=== PATIENT | male | born 1935 | race Caucasian/White ===

== ENCOUNTER 2018-06-10 04:58 | Inpatient (IN) ==
[2018-06-10] MEDS ORDERED: ONDANSETRON 4 MG/2 ML VIAL IV STA (05:10)
[2018-06-10] MEDS ORDERED: MORPHINE 4 MG/1 ML VIAL IV STA (05:10)
[2018-06-10 05:39] LABS: Basophils % 0.3 % (0.0-0.8); Eosinophils # 0.4 10*3/uL (0.0-0.87); Eosinophils % 3.7 % (0.00-10.9); Hematocrit 21.8 VOL% (42.0-52.0); Immature Granulocytes % 2.5 %; Immature Granulocytes Absolute 0.29 #; Lymphocytes # 2.4 10*3/uL (1.4-4.0); Lymphocytes % 20.3 % (21.2-54.2); Mean Corpuscular Hemoglobin 18 PG (27-34); Mean Corpuscular Volume 65.5 FL (87-102); Mean Platelet Volume 8.8 FL (9.6-12.0); Monocytes # 1.1 10*3/uL (0.11-0.8); Monocytes % 8.9 % (1.7-12.7); Neutrophils # 7.6 10*3/uL (1.4-7.4); Neutrophils % 64.3 % (38.7-73.9); Platelet Count 677 T/CUMM (130-400); Red Blood Count 3.33 MC/CUMM (3.8-5.5); Red Cell Distribution Width 17.5 % (9.3-17.3); White Blood Count 11.8 T/CUMM (4-12)
[2018-06-10 06:05] LABS: Hemoglobin 6.1 GM/DL (14.0-18.0)
[2018-06-10 06:08] LABS: Hypochromasia 1+; Ovalocytes Few; Platelet Estimate Increased
[2018-06-10 06:09] LABS: Microcytosis 1+
[2018-06-10 06:29] LABS: Bilirubin,Total 0.4 MG/DL (0.2-1.0); Calcium 8.9 MG/DL (8.5-10.1)
[2018-06-10 06:30] LABS: Albumin 2.4 G/DL (3.4-5.0); Osmolality,Calculated 279.4 MOS/KG (273-304); Potassium 4.1 MMOL/L (3.5-5.1); Total Protein 6.7 G/DL (6.4-8.3)
[2018-06-10 07:07] LABS: INR 1.1; PT Patient Result 11.2 SECS; Partial Thromboplastin Time 26.2 SECS (0-40)
[2018-06-10 07:13] LABS: Apearance,Urine CLEAR (Clear); Bilirubin,Urine Negative (Negative); Blood, Urine Negative (Negative); Glucose,Urine (UA) Negative (Negative); Ketones,Urine Negative (Negative); Nitrite,Urine Negative (Negative); Protein,Urine Negative; Urine Color Straw (Yellow); Urine Specific Gravity 1.006 (1.001-1.035); Urine Urobilinogen < 2.0 EU/DL (0.2-1.0); WBC,Urine <1 /HPF (0-6)
[2018-06-10 07:23] LABS: % Iron Saturation 3.5 % (18-50)
[2018-06-10 07:37] LABS: Folate 11.6 NG/ML (5.4-24.0)
[2018-06-10] MEDS ORDERED: ACETAMINOPHEN 325 MG TABLET PO PRN (08:50)
[2018-06-10] MEDS ORDERED: SODIUM CHLORIDE 0.9% 1,000 ML IV PRN (08:55)
[2018-06-10] MEDS: PANTOPRAZOLE 40 MG TABLET PO SCH (12:38)
[2018-06-10] MEDS: ONDANSETRON 4 MG/2 ML VIAL IV PRN ×2 (12:39→19:59)
[2018-06-10] MEDS ORDERED: MORPHINE 4 MG/1 ML VIAL IV PRN (19:33)
[2018-06-10 22:02] LABS: Hematocrit 24.4 VOL% (42.0-52.0); Hemoglobin 7.4 GM/DL (14.0-18.0)
[2018-06-11 06:17] LABS: Basophils % 0.3 % (0.0-0.8); Eosinophils # 0.5 10*3/uL (0.0-0.87); Eosinophils % 5.1 % (0.00-10.9); Hemoglobin 7.6 GM/DL (14.0-18.0); Immature Granulocytes % 2.1 %; Lymphocytes # 1.7 10*3/uL (1.4-4.0); Lymphocytes % 18.4 % (21.2-54.2); Mean Corpuscular HGB Conc 30.4 GM/DL (32-36); Mean Corpuscular Hemoglobin 20 PG (27-34); Mean Platelet Volume 8.8 FL (9.6-12.0); Monocytes # 1.1 10*3/uL (0.11-0.8); Monocytes % 11.3 % (1.7-12.7); Neutrophils % 62.8 % (38.7-73.9); Platelet Count 602 T/CUMM (130-400); Red Blood Count 3.73 MC/CUMM (3.8-5.5); Red Cell Distribution Width 19.4 % (9.3-17.3); White Blood Count 9.5 T/CUMM (4-12)
[2018-06-11 06:54] LABS: Albumin 2.2 G/DL (3.4-5.0); Bilirubin,Total 0.4 MG/DL (0.2-1.0); Calcium 8.3 MG/DL (8.5-10.1); Osmolality,Calculated 271.8 MOS/KG (273-304); Potassium 4.1 MMOL/L (3.5-5.1); Total Protein 6.2 G/DL (6.4-8.3)
[2018-06-11] MEDS: PANTOPRAZOLE 40 MG TABLET PO SCH (10:12)
[2018-06-11 11:28] VITALS: BP 134/68
== END 2018-06-11 12:47 | disposition hospice, home (50) | DRG 376 ==
LOC: N.ED 04:58 → N.EDINP 08:12 → N.4E 09:00
PROVIDERS: ADMIT Internal Medicine; ATTEND Internal Medicine

== ENCOUNTER 2019-02-18 07:31 | Inpatient (IN) ==
[2019-02-18] MEDS ORDERED: SODIUM CHLORIDE 0.9% 1,000 ML IV STA (07:56)
[2019-02-18] MEDS ORDERED: HYDROmorphone 2 MG/1 ML VIAL IV STA (07:56)
[2019-02-18] MEDS ORDERED: ONDANSETRON 4 MG/2 ML VIAL IV STA (07:56)
[2019-02-18 08:27] LABS: Basophils % 0.1 % (0.0-0.8); Eosinophils # 0.4 10*3/uL (0.0-0.87); Eosinophils % 2.7 % (0.00-10.9); Immature Granulocytes % 2.1 %; Lymphocytes % 7.4 % (21.2-54.2); Mean Corpuscular HGB Conc 27.4 GM/DL (32-36); Mean Corpuscular Volume 66.1 FL (87-102); Mean Platelet Volume 9.4 FL (9.6-12.0); Monocytes % 8.9 % (1.7-12.7); Neutrophils % 78.8 % (38.7-73.9); Platelet Count 541 T/CUMM (130-400); Red Blood Count 2.71 MC/CUMM (3.8-5.5); Red Cell Distribution Width 15.9 % (9.3-17.3)
[2019-02-18 08:32] LABS: Hematocrit 17.9 VOL% (42.0-52.0); Hemoglobin 4.9 GM/DL (14.0-18.0)
[2019-02-18 08:48] LABS: Alanine Aminotransferase 9 U/L (16-61); Albumin 2.6 G/DL (3.4-5.0); Alkaline Phosphatase 48 U/L (45-117); Aspartate Amino Transferase 4 U/L (0-37); Bilirubin,Total < 0.39 MG/DL (0.2-1.0); Blood Urea Nitrogen 23 MG/DL (7-18); Calcium 8.8 MG/DL (8.5-10.1); Glucose 108 MG/DL (74-106); Total Protein 6.8 G/DL (6.4-8.3)
[2019-02-18] MEDS ORDERED: SODIUM CHLORIDE 0.9% 1,000 ML IV PRN (10:00)
[2019-02-18] MEDS ORDERED: ONDANSETRON 4 MG/2 ML VIAL IV PRN (12:03)
[2019-02-18] MEDS ORDERED: ACETAMINOPHEN 325 MG TABLET PO PRN (12:03)
[2019-02-18] MEDS: HYDROmorphone 2 MG/1 ML VIAL IV PRN ×2 (13:22→18:22)
[2019-02-18 22:28] LABS: Hematocrit 24.7 VOL% (42.0-52.0)
[2019-02-18 22:29] LABS: Hemoglobin 7.4 GM/DL (14.0-18.0)
[2019-02-19 01:26] LABS: Apearance,Urine CLEAR (Clear); Bilirubin,Urine Negative (Negative); Blood, Urine Large mg/dL (Negative); Glucose,Urine (UA) Negative (Negative); Ketones,Urine Negative (Negative); Mucus,Urine Occasional /LPF (Occasional); Nitrite,Urine Negative (Negative); Protein,Urine Negative; RBC,Urine 39 /HPF (0-4); Urine Color Straw (Yellow); Urine Specific Gravity 1.008 (1.001-1.035); Urine Urobilinogen < 2.0 EU/DL (0.2-1.0); WBC,Urine 1 /HPF (0-6)
[2019-02-19 04:34] LABS: Basophils % 0.2 % (0.0-0.8); Eosinophils # 0.5 10*3/uL (0.0-0.87); Eosinophils % 3.6 % (0.00-10.9); Hematocrit 24.7 VOL% (42.0-52.0); Hemoglobin 7.5 GM/DL (14.0-18.0); Immature Granulocytes % 2.1 %; Immature Granulocytes Absolute 0.27 #; Lymphocytes # 1.5 10*3/uL (1.4-4.0); Lymphocytes % 12.2 % (21.2-54.2); Mean Corpuscular HGB Conc 30.4 GM/DL (32-36); Mean Corpuscular Volume 72.9 FL (87-102); Mean Platelet Volume 9.8 FL (9.6-12.0); Monocytes % 11.6 % (1.7-12.7); Neutrophils % 70.3 % (38.7-73.9); Platelet Count 421 T/CUMM (130-400); Red Blood Count 3.39 MC/CUMM (3.8-5.5); Red Cell Distribution Width 21.9 % (9.3-17.3); White Blood Count 12.6 T/CUMM (4-12)
[2019-02-19 05:04] LABS: Calcium 8.1 MG/DL (8.5-10.1); Osmolality,Calculated 275.8 MOS/KG (273-304); Thyroid Stimulating Hormone 0.226 uIU/ml (0.358-3.74)
[2019-02-19] MEDS ORDERED: PANTOPRAZOLE 40 MG TABLET PO SCH (09:00)
[2019-02-19] MEDS ORDERED: POLYETHYLENE GLYCOL POWDER 17 GM PACK PO SCH (09:00)
[2019-02-19] MEDS ORDERED: MAGNESIUM OXIDE 400 MG TABLET PO ONE (09:57)
[2019-02-19 10:20] VITALS: BP 115/57
== END 2019-02-19 11:19 | disposition hospice, home (50) | DRG 376 ==
LOC: EDUNIT# → EDBD → N.ED 07:31 → N.EDINP 10:15 → N.4E 11:07
PROVIDERS: ADMIT Internal Medicine; ATTEND Internal Medicine

== ENCOUNTER 2019-06-02 03:01 | Inpatient (IN) ==
[2019-06-02] MEDS ORDERED: ASPIRIN 325 MG TABLET PO STA (03:27)
[2019-06-02] MEDS ORDERED: ONDANSETRON 4 MG/2 ML VIAL IV STA (03:27)
[2019-06-02] MEDS ORDERED: ALUM/MAG/SIMETH/LIDO VISC 1:1 30 ML BOTTLE PO STA (03:27)
[2019-06-02] MEDS ORDERED: SODIUM CHLORIDE 0.9% 500 ML IV STA (03:27)
[2019-06-02] MEDS ORDERED: MORPHINE 4 MG/1 ML VIAL IV STA (03:27)
[2019-06-02 04:27] LABS: Basophils % 0.2 % (0.0-0.8); Eosinophils # 0.2 10*3/uL (0.0-0.87); Eosinophils % 1.7 % (0.00-10.9); Immature Granulocytes % 0.8 %; Immature Granulocytes Absolute 0.07 #; Lymphocytes # 1.2 10*3/uL (1.4-4.0); Lymphocytes % 12.7 % (21.2-54.2); Mean Corpuscular HGB Conc 25.7 GM/DL (32-36); Mean Corpuscular Volume 57.6 FL (87-102); Mean Platelet Volume 9.5 FL (9.6-12.0); Monocytes % 10.5 % (1.7-12.7); Neutrophils % 74.1 % (38.7-73.9); Platelet Count 586 T/CUMM (130-400); Red Blood Count 2.57 MC/CUMM (3.8-5.5); Red Cell Distribution Width 18.2 % (9.3-17.3); White Blood Count 9.2 T/CUMM (4-12)
[2019-06-02 04:31] LABS: Hematocrit 14.8 VOL% (42.0-52.0); Hemoglobin 3.8 GM/DL (14.0-18.0)
[2019-06-02 04:47] LABS: Alanine Aminotransferase < 9 U/L (16-61); Albumin 2.5 G/DL (3.4-5.0); Alkaline Phosphatase 69 U/L (45-117); Aspartate Amino Transferase 8 U/L (0-37); Blood Urea Nitrogen 8 MG/DL (7-18); Calcium 8.2 MG/DL (8.5-10.1); Glucose 105 MG/DL (74-106); Total Protein 6.8 G/DL (6.4-8.3)
[2019-06-02 04:54] LABS: Hypochromasia 2+; Platelet Estimate Increased
[2019-06-02 04:55] LABS: Ovalocytes Slight
[2019-06-02] MEDS ORDERED: POTASSIUM CHLORIDE 20 MEQ TABLET PO STA (04:56)
[2019-06-02] MEDS ORDERED: ACETAMINOPHEN 325 MG TABLET PO PRN (05:46)
[2019-06-02] MEDS ORDERED: SODIUM CHLORIDE 0.9% 1,000 ML IV PRN ×2 (05:49→05:50)
[2019-06-02] MEDS ORDERED: SODIUM CHLORIDE 0.9% 1,000 ML IV SCH (06:00)
[2019-06-02] MEDS ORDERED: POTASSIUM CHLORIDE RIDER 10 MEQ in PREMIX 1 EACH IV PRN (06:01)
[2019-06-02] MEDS ORDERED: PANTOPRAZOLE INJ 200 MG in SODIUM CHLORIDE 0.9% 250 ML IV SCH (08:00)
[2019-06-02] MEDS: HYDROmorphone 2 MG TABLET PO PRN (15:04)
[2019-06-02] MEDS: GABAPENTIN 300 MG CAPSULE PO SCH (21:01)
[2019-06-02] MEDS: PANTOPRAZOLE 40 MG VIAL IV SCH (21:01)
[2019-06-03 05:00] LABS: Basophils % 0.3 % (0.0-0.8); Eosinophils # 0.1 10*3/uL (0.0-0.87); Eosinophils % 0.6 % (0.00-10.9); Hematocrit 23.7 VOL% (42.0-52.0); Hemoglobin 6.8 GM/DL (14.0-18.0); Immature Granulocytes Absolute 0.13 #; Lymphocytes # 1.7 10*3/uL (1.4-4.0); Lymphocytes % 13.1 % (21.2-54.2); Mean Corpuscular HGB Conc 28.7 GM/DL (32-36); Mean Platelet Volume 9.5 FL (9.6-12.0); Monocytes % 9.4 % (1.7-12.7); Neutrophils % 75.6 % (38.7-73.9); Platelet Count 480 T/CUMM (130-400); Red Blood Count 3.59 MC/CUMM (3.8-5.5); Red Cell Distribution Width 26.7 % (9.3-17.3); White Blood Count 12.6 T/CUMM (4-12)
[2019-06-03 05:23] LABS: Calcium 8.3 MG/DL (8.5-10.1); Osmolality,Calculated 281.1 MOS/KG (273-304)
[2019-06-03 05:42] LABS: Hypochromasia 2+; Platelet Estimate Adequate
[2019-06-03] MEDS ORDERED: LACTATED RINGERS 500 ML IV SCH (08:00)
[2019-06-03] MEDS ORDERED: PROPOFOL 200 MG/20 ML VIAL IV ONE (09:00)
[2019-06-03] MEDS ORDERED: LIDOCAINE 100 MG/5 ML SYRINGE ONE (09:00)
[2019-06-03] MEDS ORDERED: SODIUM CHLORIDE 0.9% 1,000 ML IV PRN (09:11)
[2019-06-03] MEDS: FINASTERIDE 5 MG TABLET PO SCH (09:30)
[2019-06-03] MEDS: GABAPENTIN 300 MG CAPSULE PO SCH ×2 (09:30→21:07)
[2019-06-03] MEDS: PANTOPRAZOLE 40 MG VIAL IV SCH ×2 (10:10→21:06)
[2019-06-03 15:28] LABS: Hematocrit 30.3 VOL% (42.0-52.0)
[2019-06-03 22:39] LABS: Hematocrit 27.4 VOL% (42.0-52.0); Hemoglobin 8.3 GM/DL (14.0-18.0)
[2019-06-04 06:01] LABS: Basophils % 0.3 % (0.0-0.8); Eosinophils # 0.5 10*3/uL (0.0-0.87); Eosinophils % 4.4 % (0.00-10.9); Hematocrit 31.7 VOL% (42.0-52.0); Hemoglobin 9.4 GM/DL (14.0-18.0); Immature Granulocytes % 0.9 %; Immature Granulocytes Absolute 0.11 #; Lymphocytes # 1.7 10*3/uL (1.4-4.0); Mean Corpuscular HGB Conc 29.7 GM/DL (32-36); Mean Corpuscular Volume 71.9 FL (87-102); Mean Platelet Volume 9.5 FL (9.6-12.0); Monocytes % 12.2 % (1.7-12.7); Neutrophils % 68.2 % (38.7-73.9); Platelet Count 495 T/CUMM (130-400); Red Blood Count 4.41 MC/CUMM (3.8-5.5); Red Cell Distribution Width 28.9 % (9.3-17.3)
[2019-06-04 06:25] LABS: Calcium 8.1 MG/DL (8.5-10.1); Osmolality,Calculated 279.1 MOS/KG (273-304)
[2019-06-04 06:57] LABS: Anisocytosis 1+; Platelet Estimate Increased
[2019-06-04] MEDS ORDERED: POTASSIUM CHLORIDE RIDER 10 MEQ in PREMIX 1 EACH IV PRN (08:14)
[2019-06-04] MEDS: POTASSIUM CHLORIDE 20 MEQ TABLET PO PRN ×4 (08:33→18:19)
[2019-06-04] MEDS: PANTOPRAZOLE 40 MG VIAL IV SCH ×2 (08:33→21:13)
[2019-06-04] MEDS: FINASTERIDE 5 MG TABLET PO SCH (08:33)
[2019-06-04] MEDS: GABAPENTIN 300 MG CAPSULE PO SCH ×2 (08:35→21:14)
[2019-06-04] MEDS: HYDROmorphone 2 MG TABLET PO PRN (08:40)
[2019-06-04] MEDS: PROMETHAZINE 25 MG TABLET PO PRN (11:48)
[2019-06-04] MEDS ORDERED: GABAPENTIN 300 MG CAPSULE PO ONE (14:36)
[2019-06-04 17:17] LABS: Hematocrit 28.1 VOL% (42.0-52.0); Hemoglobin 8.4 GM/DL (14.0-18.0)
[2019-06-05 04:27] LABS: Hematocrit 29.2 VOL% (42.0-52.0); Hemoglobin 8.6 GM/DL (14.0-18.0)
[2019-06-05] MEDS: PANTOPRAZOLE 40 MG VIAL IV SCH ×2 (09:12→21:23)
[2019-06-05] MEDS: FINASTERIDE 5 MG TABLET PO SCH (09:12)
[2019-06-05] MEDS: GABAPENTIN 300 MG CAPSULE PO SCH ×2 (09:12→21:23)
[2019-06-05] MEDS: HYDROmorphone 2 MG TABLET PO PRN ×2 (09:15→15:01)
[2019-06-05] MEDS: amLODIPine 5 MG TABLET PO SCH ×2 (11:48→21:23)
[2019-06-05] MEDS: CARVEDILOL 6.25 MG TABLET PO SCH ×2 (11:48→21:22)
[2019-06-06 05:46] LABS: Basophils % 0.3 % (0.0-0.8); Eosinophils # 0.5 10*3/uL (0.0-0.87); Eosinophils % 5.4 % (0.00-10.9); Hematocrit 27.7 VOL% (42.0-52.0); Hemoglobin 8.2 GM/DL (14.0-18.0); Immature Granulocytes % 1.2 %; Immature Granulocytes Absolute 0.11 #; Lymphocytes # 1.2 10*3/uL (1.4-4.0); Lymphocytes % 13.4 % (21.2-54.2); Mean Corpuscular HGB Conc 29.6 GM/DL (32-36); Mean Corpuscular Volume 71.4 FL (87-102); Mean Platelet Volume 9.7 FL (9.6-12.0); Monocytes % 12.1 % (1.7-12.7); Neutrophils % 67.6 % (38.7-73.9); Platelet Count 421 T/CUMM (130-400); Red Blood Count 3.88 MC/CUMM (3.8-5.5); White Blood Count 8.8 T/CUMM (4-12)
[2019-06-06 06:05] LABS: Osmolality,Calculated 281.1 MOS/KG (273-304)
[2019-06-06 06:06] LABS: Anisocytosis 2+; Macrocytosis Slight; Microcytosis 2+; Platelet Estimate Increased
[2019-06-06 06:07] LABS: Acanthocytes Few; Elliptocytes 1+; Hypochromasia 2+; Ovalocytes 1+
[2019-06-06] MEDS ORDERED: cefOXitin 2,000 MG in SYRINGE 1 EACH IV ONE (09:00)
[2019-06-06] MEDS ORDERED: LIDOCAINE 1% 20 ML VIAL ONE (09:56)
[2019-06-06] MEDS ORDERED: BUPIVACAINE MPF 0.25% /EPI 30 ML VIAL ONE (09:56)
[2019-06-06] MEDS ORDERED: MICROFIBRILLAR COLLAGEN POWDER 1 GM CAN TOP ONE (09:57)
[2019-06-06] MEDS: amLODIPine 5 MG TABLET PO SCH ×2 (11:20→20:37)
[2019-06-06] MEDS: GABAPENTIN 300 MG CAPSULE PO SCH ×2 (11:20→20:37)
[2019-06-06] MEDS: CARVEDILOL 6.25 MG TABLET PO SCH ×2 (11:20→20:37)
[2019-06-06] MEDS: PANTOPRAZOLE 40 MG VIAL IV SCH ×2 (11:36→20:39)
[2019-06-06] MEDS ORDERED: BUPIVACAINE 0.5% 50 ML VIAL ONE (14:01)
[2019-06-06] MEDS ORDERED: DEXAMETHASONE 4 MG/1 ML VIAL ONE (14:01)
[2019-06-06] MEDS ORDERED: EPINEPHrine 1 MG/ML VIAL ONE (14:01)
[2019-06-06] MEDS ORDERED: LACTATED RINGERS 1,000 ML IV SCH (14:30)
[2019-06-06] MEDS: HYDROmorphone 2 MG/1 ML VIAL IV PRN ×4 (16:21→16:48)
[2019-06-06] MEDS ORDERED: HYDROmorphone 2 MG/1 ML VIAL ONE (16:23)
[2019-06-06] MEDS ORDERED: ONDANSETRON 4 MG/2 ML VIAL ONE (16:23)
[2019-06-06] MEDS ORDERED: ONDANSETRON 4 MG/2 ML VIAL IV PRN (16:27)
[2019-06-06] MEDS ORDERED: DESFLURANE 1 UNIT/15 MINUTE INH ONE (16:36)
[2019-06-06] MEDS ORDERED: fentaNYL 100 MCG/2 ML VIAL ONE (16:36)
[2019-06-06] MEDS ORDERED: ETOMIDATE 40 MG/20 ML VIAL IV ONE (16:36)
[2019-06-06] MEDS ORDERED: NEOSTIGMINE 10 MG/10 ML VIAL ONE (16:37)
[2019-06-06] MEDS ORDERED: GLYCOPYRROLATE 0.4 MG/2 ML VIAL ONE (16:37)
[2019-06-06] MEDS ORDERED: ACETAMINOPHEN 1,000 MG/100 ML VIAL IV ONE (16:37)
[2019-06-06] MEDS ORDERED: SUCCINYLCHOLINE 200 MG/10 ML VIAL ONE (16:37)
[2019-06-06] MEDS ORDERED: ROCURONIUM 100 MG/10 ML VIAL IV ONE (16:37)
[2019-06-06] MEDS ORDERED: PHENYLEPHRINE 1 MG/10 ML SYRINGE IV ONE (16:37)
[2019-06-06 18:19] LABS: Hemoglobin 8.9 GM/DL (14.0-18.0)
[2019-06-06] MEDS: FINASTERIDE 5 MG TABLET PO SCH (18:25)
[2019-06-06] MEDS: DEXTROSE 5% LACTATED RINGERS 1,000 ML IV SCH (18:37)
[2019-06-06] MEDS: MORPHINE 4 MG/1 ML VIAL IV PRN ×2 (18:38→22:41)
[2019-06-06] MEDS: cefOXitin 2,000 MG in SYRINGE 1 EACH IV SCH (20:42)
[2019-06-06] MEDS: hydrALAZINE 20 MG/1 ML VIAL IV PRN (22:52)
[2019-06-07 00:52] LABS: Basophils % 0.2 % (0.0-0.8); Eosinophils # 0.3 10*3/uL (0.0-0.87); Eosinophils % 1.5 % (0.00-10.9); Hematocrit 29.1 VOL% (42.0-52.0); Hematocrit 29.2 VOL% (42.0-52.0); Hemoglobin 8.6 GM/DL (14.0-18.0); Hemoglobin 8.8 GM/DL (14.0-18.0); Immature Granulocytes % 0.8 %; Immature Granulocytes Absolute 0.14 #; Lymphocytes # 0.6 10*3/uL (1.4-4.0); Lymphocytes % 3.5 % (21.2-54.2); Mean Corpuscular HGB Conc 29.5 GM/DL (32-36); Mean Corpuscular Volume 71.7 FL (87-102); Mean Platelet Volume 9.4 FL (9.6-12.0); Monocytes % 7.6 % (1.7-12.7); Neutrophils % 86.4 % (38.7-73.9); Platelet Count 402 T/CUMM (130-400); Red Blood Count 4.07 MC/CUMM (3.8-5.5); White Blood Count 17.3 T/CUMM (4-12)
[2019-06-07 01:22] LABS: Osmolality,Calculated 282.3 MOS/KG (273-304)
[2019-06-07] MEDS: DEXTROSE 5% LACTATED RINGERS 1,000 ML IV SCH ×3 (02:13→23:11)
[2019-06-07] MEDS: MORPHINE 4 MG/1 ML VIAL IV PRN ×6 (02:14→23:17)
[2019-06-07] MEDS: cefOXitin 2,000 MG in SYRINGE 1 EACH IV SCH ×2 (03:08→09:33)
[2019-06-07 03:58] LABS: Lymphocytes 8 % (20-55); Metamyelocytes 1 %; Platelet Estimate Normal; Segmented Neutrophils 88 % (50-85); Total Cells Counted 100
[2019-06-07 03:59] LABS: Hypochromasia 1+; Microcytosis 1+; Polychromasia Few
[2019-06-07 08:17] LABS: Hematocrit 30.3 VOL% (42.0-52.0); Hemoglobin 9.1 GM/DL (14.0-18.0)
[2019-06-07] MEDS: PANTOPRAZOLE 40 MG VIAL IV SCH ×2 (09:47→20:51)
[2019-06-07] MEDS: CARVEDILOL 6.25 MG TABLET PO SCH ×2 (10:43→20:54)
[2019-06-07] MEDS: GABAPENTIN 300 MG CAPSULE PO SCH ×2 (10:43→20:54)
[2019-06-07] MEDS: FINASTERIDE 5 MG TABLET PO SCH (10:44)
[2019-06-07] MEDS: amLODIPine 5 MG TABLET PO SCH ×2 (10:44→20:55)
[2019-06-08] MEDS: hydrALAZINE 20 MG/1 ML VIAL IV PRN (00:43)
[2019-06-08] MEDS: ONDANSETRON 4 MG/2 ML VIAL IV PRN ×2 (02:42→08:48)
[2019-06-08] MEDS: MORPHINE 4 MG/1 ML VIAL IV PRN ×3 (02:43→20:25)
[2019-06-08 05:58] LABS: Basophils % 0.2 % (0.0-0.8); Eosinophils # 0.1 10*3/uL (0.0-0.87); Eosinophils % 0.8 % (0.00-10.9); Hematocrit 27.9 VOL% (42.0-52.0); Hemoglobin 8.4 GM/DL (14.0-18.0); Immature Granulocytes % 0.7 %; Immature Granulocytes Absolute 0.12 #; Lymphocytes # 0.8 10*3/uL (1.4-4.0); Lymphocytes % 4.5 % (21.2-54.2); Mean Corpuscular HGB Conc 30.1 GM/DL (32-36); Mean Platelet Volume 9.6 FL (9.6-12.0); Monocytes % 9.4 % (1.7-12.7); Neutrophils % 84.4 % (38.7-73.9); Platelet Count 385 T/CUMM (130-400); Red Blood Count 3.93 MC/CUMM (3.8-5.5); White Blood Count 16.8 T/CUMM (4-12)
[2019-06-08 06:38] LABS: Band Neutrophils 3 % (0-10); Lymphocytes 5 % (20-55); Platelet Estimate Normal; Segmented Neutrophils 82 % (50-85); Total Cells Counted 100
[2019-06-08 07:43] LABS: Alanine Aminotransferase < 6 U/L (16-61); Albumin 1.6 G/DL (3.4-5.0); Alkaline Phosphatase 56 U/L (45-117); Aspartate Amino Transferase 10 U/L (0-37); Blood Urea Nitrogen 7 MG/DL (7-18); Calcium 7.7 MG/DL (8.5-10.1); Glucose 143 MG/DL (74-106); Osmolality,Calculated 274.7 MOS/KG (273-304); Total Protein 5.1 G/DL (6.4-8.3)
[2019-06-08] MEDS: CARVEDILOL 6.25 MG TABLET PO SCH ×2 (08:43→20:28)
[2019-06-08] MEDS: PANTOPRAZOLE 40 MG VIAL IV SCH ×2 (08:43→20:27)
[2019-06-08] MEDS: GABAPENTIN 300 MG CAPSULE PO SCH ×2 (08:43→20:29)
[2019-06-08] MEDS: amLODIPine 5 MG TABLET PO SCH ×2 (08:43→20:28)
[2019-06-08] MEDS: FINASTERIDE 5 MG TABLET PO SCH (08:43)
[2019-06-08] MEDS: DEXTROSE 5% LACTATED RINGERS 1,000 ML IV SCH ×2 (08:49→22:48)
[2019-06-09] MEDS: MORPHINE 4 MG/1 ML VIAL IV PRN ×3 (04:16→21:34)
[2019-06-09] MEDS: DEXTROSE 5% LACTATED RINGERS 1,000 ML IV SCH ×3 (04:18→23:47)
[2019-06-09 06:06] LABS: Calcium 8.1 MG/DL (8.5-10.1); Osmolality,Calculated 277.7 MOS/KG (273-304)
[2019-06-09 06:14] LABS: Basophils % 0.3 % (0.0-0.8); Eosinophils # 0.1 10*3/uL (0.0-0.87); Eosinophils % 0.7 % (0.00-10.9); Hematocrit 29.9 VOL% (42.0-52.0); Hemoglobin 8.9 GM/DL (14.0-18.0); Immature Granulocytes Absolute 0.15 #; Lymphocytes # 0.7 10*3/uL (1.4-4.0); Mean Corpuscular HGB Conc 29.8 GM/DL (32-36); Mean Corpuscular Volume 71.4 FL (87-102); Mean Platelet Volume 9.9 FL (9.6-12.0); Platelet Count 395 T/CUMM (130-400); Red Blood Count 4.19 MC/CUMM (3.8-5.5); White Blood Count 14.7 T/CUMM (4-12)
[2019-06-09 06:35] LABS: Hypochromasia 1+; Ovalocytes Slight; Platelet Estimate Adequate
[2019-06-09 06:36] LABS: Microcytosis Slight
[2019-06-09] MEDS: ONDANSETRON 4 MG/2 ML VIAL IV PRN ×2 (06:45→21:31)
[2019-06-09] MEDS: CARVEDILOL 6.25 MG TABLET PO SCH ×2 (09:21→21:17)
[2019-06-09] MEDS: FINASTERIDE 5 MG TABLET PO SCH (09:21)
[2019-06-09] MEDS: GABAPENTIN 300 MG CAPSULE PO SCH ×2 (09:21→21:17)
[2019-06-09] MEDS: PROMETHAZINE 25 MG TABLET PO PRN (09:21)
[2019-06-09] MEDS: amLODIPine 5 MG TABLET PO SCH ×2 (09:22→21:17)
[2019-06-09] MEDS: PANTOPRAZOLE 40 MG VIAL IV SCH ×2 (09:35→21:17)
[2019-06-09] MEDS: HYDROmorphone 2 MG TABLET PO PRN (15:10)
[2019-06-10] MEDS: ONDANSETRON 4 MG/2 ML VIAL IV PRN ×2 (04:37→21:50)
[2019-06-10] MEDS: MORPHINE 4 MG/1 ML VIAL IV PRN ×2 (04:40→13:42)
[2019-06-10] MEDS: amLODIPine 5 MG TABLET PO SCH ×2 (09:30→21:57)
[2019-06-10] MEDS: PANTOPRAZOLE 40 MG VIAL IV SCH ×2 (09:31→21:52)
[2019-06-10] MEDS: CARVEDILOL 6.25 MG TABLET PO SCH (09:31)
[2019-06-10] MEDS: FINASTERIDE 5 MG TABLET PO SCH (09:31)
[2019-06-10] MEDS: GABAPENTIN 300 MG CAPSULE PO SCH ×2 (09:31→21:56)
[2019-06-10] MEDS: PROMETHAZINE 25 MG TABLET PO PRN (09:35)
[2019-06-10] MEDS: HYDROmorphone 2 MG TABLET PO PRN (20:09)
[2019-06-10] MEDS: CARVEDILOL 12.5 MG TABLET PO SCH (21:56)
[2019-06-11] MEDS: DEXTROSE 5% LACTATED RINGERS 1,000 ML IV SCH (03:57)
[2019-06-11 09:33] LABS: Alanine Aminotransferase 9 U/L (16-61); Albumin 1.7 G/DL (3.4-5.0); Alkaline Phosphatase 46 U/L (45-117); Aspartate Amino Transferase 9 U/L (0-37); Bilirubin,Total < 0.39 MG/DL (0.2-1.0); Blood Urea Nitrogen 23 MG/DL (7-18); Calcium 7.9 MG/DL (8.5-10.1); Glucose 105 MG/DL (74-106); Osmolality,Calculated 280.5 MOS/KG (273-304); Total Protein 5.1 G/DL (6.4-8.3)
[2019-06-11] MEDS: POTASSIUM CHLORIDE 20 MEQ TABLET PO PRN (10:32)
[2019-06-11] MEDS: CARVEDILOL 12.5 MG TABLET PO SCH ×2 (10:32→18:26)
[2019-06-11] MEDS: FINASTERIDE 5 MG TABLET PO SCH (10:32)
[2019-06-11] MEDS: amLODIPine 5 MG TABLET PO SCH ×2 (10:32→21:57)
[2019-06-11] MEDS: GABAPENTIN 300 MG CAPSULE PO SCH ×2 (10:32→22:05)
[2019-06-11] MEDS: PANTOPRAZOLE 40 MG VIAL IV SCH ×2 (10:36→21:57)
[2019-06-12] MEDS: DEXTROSE 5% LACTATED RINGERS 1,000 ML IV SCH ×2 (00:27→20:33)
[2019-06-12] MEDS: amLODIPine 5 MG TABLET PO SCH (09:03)
[2019-06-12] MEDS: FINASTERIDE 5 MG TABLET PO SCH (09:03)
[2019-06-12] MEDS: CARVEDILOL 12.5 MG TABLET PO SCH ×2 (09:03→18:00)
[2019-06-12] MEDS: GABAPENTIN 300 MG CAPSULE PO SCH ×2 (09:03→22:13)
[2019-06-12] MEDS: MORPHINE 4 MG/1 ML VIAL IV PRN (09:03)
[2019-06-12] MEDS: PANTOPRAZOLE 40 MG VIAL IV SCH ×2 (09:05→22:10)
[2019-06-12] MEDS: amLODIPine 2.5 MG TABLET PO SCH (22:14)
[2019-06-12] MEDS: POTASSIUM CHLORIDE 20 MEQ TABLET PO PRN (22:33)
[2019-06-13] MEDS: POTASSIUM CHLORIDE 20 MEQ TABLET PO PRN ×3 (01:23→14:15)
[2019-06-13] MEDS: GABAPENTIN 300 MG CAPSULE PO SCH ×2 (08:28→20:36)
[2019-06-13] MEDS: amLODIPine 2.5 MG TABLET PO SCH ×2 (08:28→20:36)
[2019-06-13] MEDS: PANTOPRAZOLE 40 MG VIAL IV SCH ×2 (08:28→20:37)
[2019-06-13] MEDS: FINASTERIDE 5 MG TABLET PO SCH (08:30)
[2019-06-13] MEDS: CARVEDILOL 12.5 MG TABLET PO SCH ×2 (08:30→17:11)
[2019-06-13] MEDS: MORPHINE 4 MG/1 ML VIAL IV PRN (13:37)
[2019-06-13] MEDS: DEXTROSE 5% LACTATED RINGERS 1,000 ML IV SCH (19:21)
[2019-06-14] MEDS: GABAPENTIN 300 MG CAPSULE PO SCH ×2 (08:35→21:01)
[2019-06-14] MEDS: CARVEDILOL 12.5 MG TABLET PO SCH ×2 (08:35→17:14)
[2019-06-14] MEDS: amLODIPine 2.5 MG TABLET PO SCH ×2 (08:35→21:00)
[2019-06-14] MEDS: FINASTERIDE 5 MG TABLET PO SCH (08:35)
[2019-06-14] MEDS: PANTOPRAZOLE 40 MG VIAL IV SCH (08:36)
[2019-06-14] MEDS: MORPHINE 4 MG/1 ML VIAL IV PRN ×2 (08:36→17:13)
[2019-06-14] MEDS: DEXTROSE 5% LACTATED RINGERS 1,000 ML IV SCH (17:14)
[2019-06-15] MEDS: PANTOPRAZOLE 40 MG VIAL IV SCH ×3 (00:13→22:04)
[2019-06-15] MEDS: ONDANSETRON 4 MG/2 ML VIAL IV PRN ×2 (00:14→03:59)
[2019-06-15] MEDS: MORPHINE 4 MG/1 ML VIAL IV PRN ×4 (00:15→23:59)
[2019-06-15] MEDS: FINASTERIDE 5 MG TABLET PO SCH (09:37)
[2019-06-15] MEDS: amLODIPine 2.5 MG TABLET PO SCH ×2 (09:37→22:04)
[2019-06-15] MEDS: CARVEDILOL 12.5 MG TABLET PO SCH ×2 (09:37→17:07)
[2019-06-15] MEDS: GABAPENTIN 300 MG CAPSULE PO SCH ×2 (09:37→22:04)
[2019-06-16] MEDS: MORPHINE 4 MG/1 ML VIAL IV PRN (07:54)
[2019-06-16] MEDS: DEXTROSE 5% LACTATED RINGERS 1,000 ML IV SCH ×2 (08:01→08:02)
[2019-06-16] MEDS: FINASTERIDE 5 MG TABLET PO SCH (09:57)
[2019-06-16] MEDS: amLODIPine 2.5 MG TABLET PO SCH (09:57)
[2019-06-16] MEDS: GABAPENTIN 300 MG CAPSULE PO SCH (09:57)
[2019-06-16] MEDS: CARVEDILOL 12.5 MG TABLET PO SCH (09:57)
[2019-06-16] MEDS: PANTOPRAZOLE 40 MG VIAL IV SCH (09:58)
[2019-06-16 10:26] VITALS: BP 125/63
== END 2019-06-16 11:02 | disposition swing bed (61) | DRG 329 ==
LOC: N.ED 03:01 → N.EDINP 05:46 → SUATTDRO 05:46 → SUPCPDRO 05:46 → N.4E 06:42
PROVIDERS: ADMIT Internal Medicine; ATTEND Hospitalist

== ENCOUNTER 2019-06-20 09:22 | Inpatient (IN) ==
[2019-06-20] MEDS ORDERED: ONDANSETRON 4 MG/2 ML VIAL ONE (10:07)
[2019-06-20] MEDS ORDERED: HYDROmorphone 2 MG/1 ML VIAL ONE (10:08)
[2019-06-20] MEDS ORDERED: ONDANSETRON 4 MG/2 ML VIAL IV STA (10:34)
[2019-06-20] MEDS ORDERED: HYDROmorphone 2 MG/1 ML VIAL IV STA (10:34)
[2019-06-20 10:43] LABS: Albumin 1.4 G/DL (3.4-5.0); Bilirubin,Total 0.6 MG/DL (0.2-1.0); Calcium 8.1 MG/DL (8.5-10.1); Osmolality,Calculated 274.4 MOS/KG (273-304); Total Protein 5.9 G/DL (6.4-8.3)
[2019-06-20] MEDS ORDERED: diphenhydrAMINE CAP 25 MG CAPSULE PO PRN (14:09)
[2019-06-20] MEDS ORDERED: FUROSEMIDE 20 MG/2 ML VIAL IV PRN (14:09)
[2019-06-20] MEDS ORDERED: SODIUM CHLORIDE 0.9% 1,000 ML IV PRN (14:09)
[2019-06-20] MEDS ORDERED: HYDROmorphone 2 MG/1 ML VIAL IV PRN ×2 (16:52→18:59)
[2019-06-20] MEDS: SODIUM CHLORIDE 0.9% 1,000 ML IV SCH (19:52)
[2019-06-20] MEDS: GABAPENTIN 300 MG CAPSULE PO SCH (21:02)
[2019-06-21 05:11] LABS: Basophils % 0.2 % (0.0-0.8); Eosinophils % 0.1 % (0.00-10.9); Hematocrit 30.1 VOL% (42.0-52.0); Immature Granulocytes % 2.4 %; Immature Granulocytes Absolute 0.57 #; Lymphocytes # 0.7 10*3/uL (1.4-4.0); Lymphocytes % 3.1 % (21.2-54.2); Mean Corpuscular HGB Conc 30.6 GM/DL (32-36); Mean Corpuscular Volume 75.4 FL (87-102); Mean Platelet Volume 9.7 FL (9.6-12.0); Monocytes % 7.4 % (1.7-12.7); NRBC # 0.06 10*3/uL; Neutrophils % 86.8 % (38.7-73.9); Platelet Count 564 T/CUMM (130-400); Red Cell Distribution Width 27.9 % (9.3-17.3); White Blood Count 24.2 T/CUMM (4-12)
[2019-06-21 05:15] LABS: Hemoglobin 9.2 GM/DL (14.0-18.0); Red Blood Count 3.99 MC/CUMM (3.8-5.5)
[2019-06-21 05:21] LABS: Folate 4.7 NG/ML (5.4-24.0); Vitamin B12 300 PG/ML (211-911)
[2019-06-21 05:24] LABS: % Iron Saturation 11.1 % (18-50)
[2019-06-21 05:52] LABS: Hypochromasia 1+; Lymphocytes 1 % (20-55); Platelet Estimate Increased; Polychromasia Few; Segmented Neutrophils 97 % (50-85); Total Cells Counted 100
[2019-06-21 05:58] LABS: Albumin 1.4 G/DL (3.4-5.0); Bilirubin,Total 0.9 MG/DL (0.2-1.0); Osmolality,Calculated 277.2 MOS/KG (273-304); Total Protein 5.6 G/DL (6.4-8.3)
[2019-06-21 08:39] LABS: Sedimentation Rate-Westergren 47 MM/HR (0-20)
[2019-06-21] MEDS: PANTOPRAZOLE 40 MG TABLET PO SCH (08:54)
[2019-06-21] MEDS: FINASTERIDE 5 MG TABLET PO SCH (08:54)
[2019-06-21] MEDS: GABAPENTIN 300 MG CAPSULE PO SCH ×2 (08:54→22:04)
[2019-06-21] MEDS ORDERED: TUBERCULIN SKIN TEST 0.1 ML SYRINGE INTRADERM ONE (15:24)
[2019-06-21] MEDS: SODIUM CHLORIDE 0.9% 1,000 ML IV SCH ×2 (17:35→20:56)
[2019-06-21] MEDS: TAMSULOSIN 0.4 MG CAPSULE PO SCH (22:04)
[2019-06-22 04:36] LABS: Basophils # 0.1 10*3/uL (0.0-0.2); Basophils % 0.3 % (0.0-0.8); Eosinophils # 0.1 10*3/uL (0.0-0.87); Eosinophils % 0.6 % (0.00-10.9); Hematocrit 30.8 VOL% (42.0-52.0); Immature Granulocytes % 3.2 %; Immature Granulocytes Absolute 0.67 #; Lymphocytes # 0.9 10*3/uL (1.4-4.0); Lymphocytes % 4.4 % (21.2-54.2); Mean Corpuscular HGB Conc 29.2 GM/DL (32-36); Mean Corpuscular Volume 75.9 FL (87-102); Mean Platelet Volume 9.9 FL (9.6-12.0); Monocytes % 7.5 % (1.7-12.7); NRBC # 0.04 10*3/uL; Platelet Count 566 T/CUMM (130-400); Red Blood Count 4.06 MC/CUMM (3.8-5.5); Red Cell Distribution Width 28.2 % (9.3-17.3); White Blood Count 21.1 T/CUMM (4-12)
[2019-06-22 04:56] LABS: Albumin 1.4 G/DL (3.4-5.0); Bilirubin,Total 1.3 MG/DL (0.2-1.0); Calcium 8.2 MG/DL (8.5-10.1); Total Protein 5.9 G/DL (6.4-8.3)
[2019-06-22 05:16] LABS: Band Neutrophils 3 % (0-10); Hypochromasia 2+; Lymphocytes 4 % (20-55); Platelet Estimate Increased; Polychromasia Few; Segmented Neutrophils 86 % (50-85); Total Cells Counted 100
[2019-06-22] MEDS: FINASTERIDE 5 MG TABLET PO SCH (09:18)
[2019-06-22] MEDS: GABAPENTIN 300 MG CAPSULE PO SCH ×2 (09:18→21:17)
[2019-06-22] MEDS: PANTOPRAZOLE 40 MG TABLET PO SCH (09:18)
[2019-06-22] MEDS: SODIUM CHLORIDE 0.9% 1,000 ML IV SCH ×2 (21:16→21:17)
[2019-06-22] MEDS: TAMSULOSIN 0.4 MG CAPSULE PO SCH (21:17)
[2019-06-23 05:17] LABS: Basophils # 0.1 10*3/uL (0.0-0.2); Basophils % 0.6 % (0.0-0.8); Eosinophils # 0.1 10*3/uL (0.0-0.87); Eosinophils % 0.4 % (0.00-10.9); Hematocrit 32.8 VOL% (42.0-52.0); Hemoglobin 9.8 GM/DL (14.0-18.0); Immature Granulocytes % 3.6 %; Immature Granulocytes Absolute 0.77 #; Lymphocytes # 0.8 10*3/uL (1.4-4.0); Lymphocytes % 3.7 % (21.2-54.2); Mean Corpuscular HGB Conc 29.9 GM/DL (32-36); Mean Corpuscular Volume 75.6 FL (87-102); Mean Platelet Volume 9.7 FL (9.6-12.0); Monocytes % 6.6 % (1.7-12.7); NRBC # 0.04 10*3/uL; Neutrophils % 85.1 % (38.7-73.9); Red Blood Count 4.34 MC/CUMM (3.8-5.5); Red Cell Distribution Width 28.7 % (9.3-17.3); White Blood Count 21.4 T/CUMM (4-12)
[2019-06-23 05:21] LABS: Platelet Count 361 T/CUMM (130-400)
[2019-06-23 05:29] LABS: Band Neutrophils 1 % (0-10); Hypochromasia 1+; Ovalocytes Slight; Platelet Estimate Adequate; Segmented Neutrophils 94 % (50-85); Total Cells Counted 100
[2019-06-23 05:43] LABS: Albumin 1.4 G/DL (3.4-5.0); Bilirubin,Total 1.1 MG/DL (0.2-1.0); Calcium 8.5 MG/DL (8.5-10.1); Osmolality,Calculated 272.2 MOS/KG (273-304); Total Protein 5.9 G/DL (6.4-8.3)
[2019-06-23] MEDS ORDERED: SODIUM POLYSTYRENE SULFATE 15 GM/60 ML BOTTLE PO STA (07:11)
[2019-06-23] MEDS: CYANOCOBALAMIN 500 MCG TABLET PO SCH (09:57)
[2019-06-23] MEDS: FOLIC ACID 1 MG TABLET PO SCH (09:57)
[2019-06-23] MEDS: PANTOPRAZOLE 40 MG TABLET PO SCH (09:57)
[2019-06-23] MEDS: FINASTERIDE 5 MG TABLET PO SCH (09:57)
[2019-06-23] MEDS: GABAPENTIN 300 MG CAPSULE PO SCH ×2 (09:57→21:27)
[2019-06-23] MEDS: FLUTICASONE 50 MCG NASAL SPRAY 16 GM BOTTLE BOTH NARES SCH (12:06)
[2019-06-23 18:00] LABS: Apearance,Urine CLEAR (Clear); Bacteria,Urine Occasional /HPF (Few); Bilirubin,Urine Negative (Negative); Blood, Urine Negative (Negative); Glucose,Urine (UA) Negative (Negative); Ketones,Urine 5 mg/dL (Negative); Mucus,Urine Occasional /LPF (Occasional); Nitrite,Urine Negative (Negative); Protein,Urine Negative; RBC,Urine 1 /HPF (0-4); Urine Color Amber (Yellow); Urine Specific Gravity 1.023 (1.001-1.035); Urine Urobilinogen < 2.0 EU/DL (0.2-1.0); WBC,Urine 2 /HPF (0-6)
[2019-06-23] MEDS: TAMSULOSIN 0.4 MG CAPSULE PO SCH (21:27)
[2019-06-24 07:17] LABS: Basophils # 0.1 10*3/uL (0.0-0.2); Basophils % 0.3 % (0.0-0.8); Eosinophils # 0.1 10*3/uL (0.0-0.87); Eosinophils % 0.7 % (0.00-10.9); Hematocrit 32.9 VOL% (42.0-52.0); Hemoglobin 9.7 GM/DL (14.0-18.0); Immature Granulocytes Absolute 0.75 #; Lymphocytes % 5.1 % (21.2-54.2); Mean Corpuscular HGB Conc 29.5 GM/DL (32-36); Mean Corpuscular Volume 75.3 FL (87-102); Mean Platelet Volume 9.1 FL (9.6-12.0); Monocytes % 8.8 % (1.7-12.7); NRBC # 0.02 10*3/uL; Neutrophils % 81.1 % (38.7-73.9); Platelet Count 571 T/CUMM (130-400); Red Blood Count 4.37 MC/CUMM (3.8-5.5); Red Cell Distribution Width 28.7 % (9.3-17.3); White Blood Count 18.7 T/CUMM (4-12)
[2019-06-24 07:33] LABS: Calcium 8.2 MG/DL (8.5-10.1); Osmolality,Calculated 280.5 MOS/KG (273-304)
[2019-06-24 07:42] LABS: Lymphocytes 6 % (20-55); Platelet Estimate Increased; Segmented Neutrophils 90 % (50-85); Total Cells Counted 100
[2019-06-24 07:43] LABS: Hypochromasia 1+; Ovalocytes Slight
[2019-06-24] MEDS: FOLIC ACID 1 MG TABLET PO SCH (10:59)
[2019-06-24] MEDS: FINASTERIDE 5 MG TABLET PO SCH (10:59)
[2019-06-24] MEDS: CYANOCOBALAMIN 500 MCG TABLET PO SCH (10:59)
[2019-06-24] MEDS: GABAPENTIN 300 MG CAPSULE PO SCH (11:00)
[2019-06-24] MEDS: PANTOPRAZOLE 40 MG TABLET PO SCH (11:01)
[2019-06-24] MEDS: FLUTICASONE 50 MCG NASAL SPRAY 16 GM BOTTLE BOTH NARES SCH (11:07)
[2019-06-24 12:55] VITALS: BP 135/79
== END 2019-06-24 14:08 | DRG 812 ==
LOC: EDUNIT# → EDBD → N.ED 09:22 → N.EDINP 09:22 → N.4E 12:56
PROVIDERS: ADMIT Hospitalist; ATTEND Hospitalist